=== PATIENT | female | born 1995 | race Caucasian/White ===

== ENCOUNTER → 2016-12-16 | Outpatient (CLI) | payer OTHER ==
[~2016-12-16] MED LIST: BCPILLS PO; EPP3/2 IM
== END | disposition home or self-care (01) ==
LOC: C.PAPS 09:51
PROVIDERS: ATTEND Obstetrics & Gynecology
DX: Z34.81 Encounter for supervision of other normal pregnancy, first trimester (principal)

== ENCOUNTER → 2016-12-16 | Outpatient (CLI) | payer OTHER ==
[2016-12-16 16:43] LABS: URINE APPEARANCE CLOUDY (CLEAR); URINE BILIRUBIN NEG (NEG); URINE COLOR YELLOW; URINE EPITHELIAL CELL AUTO >30 /lpf (0-5); URINE NITRITE NEG (NEG); URINE SPECIFIC GRAVITY 1.021 (1.000-1.030); UROBILINOGEN NEG (NEG)
[2016-12-16 16:46] LABS: MANUAL MICROSCOPIC REQUIRED? NO; REVIEW REQ? NO
[2016-12-19 00:57] LABS: CHLAMYDIA TRACH RNA*** NOT DETECTED (NOT DETECTED); GC (NEIS GONORRHOEAE)RNA** NOT DETECTED (NOT DETECTED)
== END | disposition home or self-care (01) ==
LOC: C.LABSPEC 16:12
PROVIDERS: ATTEND Obstetrics & Gynecology
DX: Z34.81 Encounter for supervision of other normal pregnancy, first trimester (principal)

== ENCOUNTER → 2016-12-16 | Outpatient (CLI) | payer OTHER ==
[2016-12-16 13:25] LABS: BASO % 0.7 %; BASO ABS # 0.07 K/uL (0-0.2); COMPLETE YES; EOS % 3.7 %; HEMATOCRIT 40.1 % (37-47); IG% 0.4 %; LYMPH % 24.4 %; LYMPH ABS # 2.34 K/uL (1.2-3.4); MEAN CORPUSCULAR HEMOGLOBIN 31.6 pg (25-34); MEAN CORPUSCULAR HGB CONC 33.9 g/dl (32-36); MEAN PLATELET VOLUME 11.2 fL (7.4-10.4); MONO % 9.1 %; NEUT % 61.7 %; PLATELET COUNT 286 K/uL (130-400); RED BLOOD COUNT 4.31 M/uL (4.2-5.4); WHITE BLOOD COUNT 9.58 K/uL (4.8-10.8)
== END | disposition home or self-care (01) ==
LOC: C.LAB1850 12:22
PROVIDERS: ATTEND Obstetrics & Gynecology
DX: Z34.81 Encounter for supervision of other normal pregnancy, first trimester (principal)

== ENCOUNTER 2017-08-05 01:04 | Inpatient (IN) | payer OTHER ==
[~2017-08-05] VITALS: Ht 167.6 cm; Wt 94.6 kg
[2017-08-05] MEDS ORDERED: LACTATED RINGER'S 1000ML 1,000 ML IV SCH (02:00)
[2017-08-05] MEDS ORDERED: NURSING VERBAL MED ORDER ONE (02:00)
[2017-08-05] MEDS ORDERED: CALCIUM CARBONATE 500 MG CHEWABLE PO PRN (02:30)
[2017-08-05] MEDS ORDERED: LACTATED RINGER'S 1000ML 500 ML IV PRN ×2 (02:36→03:20)
[2017-08-05] MEDS ORDERED: OXYTOCIN 30 UNITS/500ML NSS IV PRN ×2 (02:45→11:45)
[2017-08-05] MEDS ORDERED: EpHEDrine SULFATE INJ 50 MG/ML AMP ONE (02:46)
[2017-08-05] MEDS ORDERED: BUPIVACAINE 0.25% 30 ML VIAL ONE (02:46)
[2017-08-05] MEDS ORDERED: FENTANYL CITRATE INJ 50 MCG/1 ML 2 ML VIAL ONE ×2 (02:47→09:56)
[2017-08-05] MEDS ORDERED: FENTANYL 2MCG/ML ROPIV 1.25MG/ML 100ML BAG EPI ONE (02:53)
[2017-08-05 03:07] LABS: HEMATOCRIT 32.8 % (37-47); MEAN CELL VOLUME 86.3 fL (80-100); MEAN CORPUSCULAR HEMOGLOBIN 28.9 pg (25-34); MEAN CORPUSCULAR HGB CONC 33.5 g/dl (32-36); MEAN PLATELET VOLUME 10.9 fL (7.4-10.4); PLATELET COUNT 287 K/uL (130-400); RED CELL DISTRIBUTION WIDTH CV 14.3 % (11.5-14.5); RED CELL DISTRIBUTION WIDTH SD 45.1 fL (36.4-46.3); WHITE BLOOD COUNT 15.84 K/uL (4.8-10.8)
[2017-08-05] MEDS ORDERED: NALOXONE HCL INJ 1 MG in SODIUM CHLORIDE 0.9% 1000ML 1,000 ML IV PRN (03:20)
[2017-08-05 03:22] VITALS: Ht 167.6 cm; Wt 94.6 kg
[2017-08-05] MEDS ORDERED: RANI150T3 PO (03:26)
[2017-08-05] MEDS ORDERED: EpHEDrine SULFATE INJ 50 MG/ML AMP IV PRN (03:30)
[2017-08-05] MEDS ORDERED: DiphenhydrAMINE HCL 50 MG/ML VIAL IV PRN (03:30)
[2017-08-05] MEDS ORDERED: OXYTOCIN 30 UNITS/500ML NSS IV ONE (03:30)
[2017-08-05] MEDS ORDERED: NALOXONE HCL INJ 0.4 MG/1 ML VIAL/CARP IV PRN (03:30)
[2017-08-05] MEDS ORDERED: NALBUPHINE HCL INJ 10 MG/ML 1ML AMP IV PRN (03:30)
[2017-08-05] MEDS ORDERED: CALCIUM CARBONATE 500 MG CHEWABLE ONE (03:30)
[2017-08-05] MEDS: LACTATED RINGER'S 1000ML 1,000 ML IV SCH ×2 (05:45→10:35)
[2017-08-05] MEDS: FENTANYL 2MCG/ML ROPIV 1.25MG/ML 100ML BAG EPI PRN ×2 (07:02→10:23)
[2017-08-05] MEDS ORDERED: DIPHTHERIA/TETANUS/PERTUSSIS 0.5 ML SYR/VIAL IM. ONE (11:45)
[2017-08-05] MEDS ORDERED: LANOLIN OINT EXT PRN (11:45)
[2017-08-05] MEDS ORDERED: ACETAMINOPHEN 325 MG TAB PO PRN (11:45)
[2017-08-05] MEDS ORDERED: BENZOCAINE 20% AER SPR 82.5 GM CAN EXT PRN (11:45)
[2017-08-05] MEDS ORDERED: HYDROCORTISONE ACETATE 25 MG SUPP PR PRN (11:45)
[2017-08-05] MEDS ORDERED: OXYCODONE/ACETAMINOPHEN 5-325 TAB PO PRN (11:45)
[2017-08-05] MEDS ORDERED: SUPERCREAM 0.870 % 15GM JAR EXT PRN (11:45)
--- NOTE | 2017-08-05 12:49 | DELIVERY SUMMARY ---
DATE OF OPERATION: 08/05/2017 TIME OF DELIVERY: 11:36 a.m. DELIVERY OF PLACENTA: 11:38 a.m. DELIVERY NOTE: The patient is a 21-year-old 2 para 1 at 41 weeks' gestation, who was admitted to labor and delivery on the morning of 08/05/2017 with spontaneous rupture of membranes that occurred at 2325 on 2017 with a large amount of clear amniotic fluid noted. She received an epidural for anesthesia. She reached complete dilation at 11:23 a.m. with the urge to push. The patient pushed to delivery at 11:36 a.m. She delivered a viable female infant in the right occiput anterior position to an intact perineum. The baby was delivered. Cord clamped x2 and cut. The baby was immediately handed to awaiting nurse for further evaluation and management. Cord blood was then obtained and an intact placenta with a 3-vessel cord was delivered at 11:38. Oxytocin infusion was then begun. The lower uterine segment and vagina were cleared of any blood clot and debris. Exploration of the perineum noted no lacerations. ESTIMATED BLOOD LOSS: 300 mL. All sponge and instrument counts were found to be correct x2. Both the patient and baby tolerated the delivery well and were in Recovery with stable vital signs. I attest to the content of the Intraoperative Record and any orders documented therein. Any exceptions are noted below. MTDD
--- NOTE | 2017-08-05 13:09 | Anesthesia Procedure Note ---
Anesthesia Epidural Removal Nt Date & Time Aug 05, 2017 at 13:09 Vital Signs Pain Intensity: 4.0 Notes Mental Status: alert / awake / arousable, participated in evaluation Nausea / Vomiting: adequately controlled Pain: adequately controlled Airway Patency, RR, SpO2: stable & adequate BP & HR: stable & adequate Hydration State: stable & adequate Neuraxial Anesthesia: was administered Anesthetic Complications: no major complications apparent, pt satisfied with anesthetic care Epidural: removed without complications, with tip intact
[2017-08-05 15:12] VITALS: BP 136/83; PULSE 84; TEMP 37.3; O2SAT 98
[2017-08-05] MEDS: IBUPROFEN 600 MG TAB PO PRN ×2 (15:46→23:37)
[2017-08-05] MEDS: DOCUSATE SODIUM 100 MG CAP PO SCH (19:43)
[2017-08-05 19:45] VITALS: BP 117/79; PULSE 82; TEMP 36.6; O2SAT 98
[2017-08-05 23:40] VITALS: BP 126/80; PULSE 72; TEMP 36.4; O2SAT 98
[2017-08-06 03:50] VITALS: BP 111/74; PULSE 81; TEMP 36.4; O2SAT 98
[2017-08-06 07:12] LABS: HEMATOCRIT 29.9 % (37-47); HEMOGLOBIN 9.7 g/dL (12.0-16.0)
[2017-08-06 07:38] VITALS: BP 116/83; PULSE 73; TEMP 36.5; O2SAT 97; O2SAT 98
[2017-08-06] MEDS: DOCUSATE SODIUM 100 MG CAP PO SCH ×2 (08:05→19:44)
[2017-08-06] MEDS: IBUPROFEN 600 MG TAB PO PRN ×3 (08:05→19:45)
[2017-08-06] MEDS: PRENATAL VITAMIN TAB PO SCH (08:06)
[2017-08-06] MEDS: FERROUS SULFATE 325 MG TAB PO SCH (08:06)
--- NOTE | 2017-08-06 08:11 | OB/GYN Progress Note ---
MOISTURE TESTER Progress Note Date of Service: Aug 06, 2017. Patient is seen and examined. She feels well, no complaints. Ambulating without dizziness Voiding without difficulty Tolerating regular diet with out N&V Bleeding is minimal No fever/ chills/ CP/ SOB/ N&V/ Leg pain Breast feeding without problems Date Time Temp Pulse Resp B/P (MAP) Pulse Ox O2 Delivery O2 Flow Rate FiO2 08/06/17 03:50 36.4 81 18 111/74 (86) 98 Room Air 08/05/17 23:40 98 Room Air 08/05/17 23:40 36.4 72 18 126/80 (95) 98 Room Air 08/05/17 19:45 36.6 82 18 117/79 (92) 98 Room Air 08/05/17 15:20 Room Air 08/05/17 15:12 37.3 84 20 136/83 (100) 98 Room Air Last 24 Hours Test 08/06/17 06:32 Hemoglobin 9.7 g/dL Hematocrit 29.9 % PE: General: Alert, orientedx3, NAD Abd: soft, NT, fundus firm, below Umbilicus Perineum intact, Lochia rubra minimal Ext; NT, no edema AP: 21 yo s/p , ppd# 1 VSS Afebrile doing well Continue routine care All questions were answered D/C home tomorrow
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
[2017-08-06 13:30] VITALS: BP 128/89; PULSE 65; TEMP 36.7; O2SAT 96
--- NOTE | 2017-08-06 14:00 | NUR ---
Patient requesting IV site to be removed at this time. Explained to her that she is supposed to have another lab drawn tomorrow morning. She understands that if we would have a need for a new IV site we will have to restick her. She verbalized understanding and still requesting site to be taken out. IV catheter intact removed at this time.
[2017-08-06 15:15] VITALS: BP 139/88; PULSE 78; TEMP 36.8
--- NOTE | 2017-08-06 18:45 | NUR ---
Pt in room with infant and 2.5 year old daughter. Asked if there was someone else here at this time and pt stated she does not have anyone here at this time but someone will be here shortly. Educated pt about not having older daughter here alone. Pt stated she understands and someone will be here shortly to watch her. Pt also stated that "they" told her she can drive home tomorrow and she will need to put the car seat base. Encouraged pt to try her best to find a ride home and that driving home after being a pt is highly discouraged. Pt stated she does not have a ride but she will keep trying to find a ride.
[2017-08-06] MEDS ORDERED: BISACODYL 5 MG TABEC PO SCH (20:00)
[2017-08-07 00:20] VITALS: BP 138/81; PULSE 69; TEMP 36.7
[2017-08-07] MEDS: IBUPROFEN 600 MG TAB PO PRN ×2 (06:14→11:39)
[2017-08-07] MEDS ORDERED: BISACODYL 10 MG SUPP PR PRN (07:00)
[2017-08-07 07:27] LABS: HEMATOCRIT 32.4 % (37-47); HEMOGLOBIN 10.6 g/dL (12.0-16.0); MEAN CORPUSCULAR HEMOGLOBIN 28.8 pg (25-34); MEAN CORPUSCULAR HGB CONC 32.7 g/dl (32-36); MEAN PLATELET VOLUME 11.1 fL (7.4-10.4); PLATELET COUNT 294 K/uL (130-400); RED CELL DISTRIBUTION WIDTH CV 14.9 % (11.5-14.5); RED CELL DISTRIBUTION WIDTH SD 47.6 fL (36.4-46.3)
[2017-08-07] MEDS: PRENATAL VITAMIN TAB PO SCH (08:45)
[2017-08-07] MEDS: DOCUSATE SODIUM 100 MG CAP PO SCH (08:45)
[2017-08-07] MEDS: FERROUS SULFATE 325 MG TAB PO SCH (08:45)
[2017-08-07 08:50] VITALS: BP 128/84; PULSE 63; TEMP 36.6; O2SAT 97
--- NOTE | 2017-08-07 10:19 | OB/GYN Progress Note ---
ASSOCIATE PROGRAMMER Progress Note Date of Service Aug 07, 2017. Subjective conversation w/ patient, physical exam Ambulation: ambulating normally Voiding: no voiding problems Passing Gas: Yes Diet Tolerance: Regular Diet Lochia: Moderate Feeding Type: Breast Feeding Review of Systems Constitutional: No fever, No chills, No sweats, No weight loss, No weakness, No fatigue, No problem reported Respiratory: No cough, No sputum, No wheezing, No shortness of breath, No dyspnea on exertion, No dyspnea at rest, No hemoptysis, No problem reported Cardiac: No chest pain, No orthopnea, No PND, No edema, No claudication, No palpitations, No problem reported Breast: No see HPI, No breast lump, No change in shape, No nipple discharge, No breast pain, No problem reported Abdomen: No pain, No nausea, No vomiting, No diarrhea, No constipation, No GI bleeding, No problem reported Female : No see HPI, No dysuria, No urinary frequency, No hematuria, No incontinence, No abnormal vaginal bleeding, No vaginal discharge, No problem reported Objective Vital Signs Date Time Temp Pulse Resp B/P (MAP) Pulse Ox O2 Delivery O2 Flow Rate FiO2 08/07/17 00:20 36.7 69 18 138/81 (100) Room Air 08/07/17 00:20 Room Air 08/06/17 15:15 Room Air 08/06/17 15:15 36.8 78 18 139/88 (105) Room Air 08/06/17 13:30 36.7 65 18 128/89 (102) 96 Room Air Physical Exam General Appearance: WELL-APPEARING, WD/WN, NO APPARENT DISTRESS Respiratory/Chest: chest non-tender, lungs clear, normal breath sounds, no respiratory distress Cardiovascular: regular rate, rhythm, no edema, no gallop Abdomen: normal bowel sounds, non tender Fundus: Firm Extremities: normal range of motion, non-tender, normal inspection Laboratory Results Last 24 Hours Test 08/07/17 06:59 White Blood Count 11.70 K/uL Red Blood Count 3.68 M/uL Hemoglobin 10.6 g/dL Hematocrit 32.4 % Mean Corpuscular Volume 88.0 fL Mean Corpuscular Hemoglobin 28.8 pg Mean Corpuscular Hemoglobin Concent 32.7 g/dl RDW Standard Deviation 47.6 fL RDW Coefficient of Variation 14.9 % Platelet Count 294 K/uL Mean Platelet Volume 11.1 fL Assessment and Plan Day Number: 2 Continue Routine Care: VD Day #2 Pt doing well No complaints discharge home with instructions
[2017-08-07] MEDS ORDERED: FRRS300 PO (10:26)
[2017-08-07] MEDS ORDERED: CLC100 PO (10:26)
[2017-08-07] MEDS ORDERED: MTR600X PO (10:26)
--- NOTE | 2017-08-07 10:26 | Discharge Instructions ---
Discharge Instructions Date of Service Aug 07, 2017. Admission Reason for Admission: LABOR Discharge Discharge Diagnosis / Problem: Discharge Goals Goal(s): Routine recovery after delivery Activity Recommendations Activity Limitations: as noted below ACTIVITY RECOMMENDATIONS: * Gradual return to full activity over the next 2-3 weeks. * No lifting - nothing heavier than baby over the next 2-3 weeks. * Do not engage in vigorous exercise, sexual activity or sports until cleared by your physician. * Do not drive or operate any motorized equipment until cleared by your physician. * You may shower/bathe daily. BREAST CARE: If you are not breast feeding: * Wear a supportive bra 24 hours a day for one to two weeks. * Avoid stimulating your breasts and nipples as much as possible during the first few weeks after delivery. * When taking a shower, have the warm water hit your back, not breasts. * When your breasts feel full, apply ice packs. Usually three to four times a day helps ease the discomfort. * Take a mild pain medication (Tylenol/Motrin) when you are uncomfortable. If breast feeding: * Use breast milk to lubricate nipples. Lansinoh cream may be used for sore nipples. You do not need to remove cream prior to breast feeding. If using a different brand of cream, check the label for directions regarding removal of cream prior to nursing. * Wear a supportive bra. * If having problems with breasts or breast feeding, call a actuarial consultant or your health care provider. EPISIOTOMY CARE: After delivery, if you have an episiotomy (stitches), the following steps will ease discomfort and aid healing. * For the first 24 hours after delivery, place ice packs next to your episiotomy to help reduce swelling. * After the first 24 hour-period, sitz baths, either portable or in the tub, are suggested. A shower with a shower arm sprayed over the episiotomy may be comforting. * Magalis care should be done after each voiding and bowel movement. Squirt warm water from a plastic bottle over the perineum (region of the body between the anus and urinary opening) and pat dry. * Use Dermoplast to ease discomfort. Shake container. Golva directly over the episiotomy. * Place a Tucks on a clean sanitary pad next to your episiotomy. OVER THE COUNTER MEDICATION: * For discomfort or pain, you may use Acetaminophen (Tylenol), Ibuprofen (Advil ), or Naproxen (Aleve) following the package directions. * For constipation you may use Colace following the package directions. SPECIAL CARE INSTRUCTIONS: When you are discharged from the hospital, it is important for you to follow the instructions listed below: * During the first week at home, you should be able to care for yourself and your baby. In addition, the usual light household activities are encouraged. * Limit your activities to the way you feel. Do not try to clean the house or move furniture. Be sensible. * If you actively engage in sports and have done so up until the time of your delivery, you may resume these activities as soon as you feel able. This may take up to one month or even longer. Use good judgment. * Continue to take your vitamins for at least six weeks after the of your baby. * Your diet need not be limited unless you were on a special diet before your delivery. Breast-feeding mothers need around 2500 calories per day and at least 64-80 ounces of fluid per day (8 to 10 glasses). * You should eat foods from the four major food groups. Crash diets or fad diets are to be avoided. Eating lean meats, fresh fruits and vegetables, low-fat dairy products, high fiber foods and a regular exercise program, will help you get back to your pre- weight without putting your health at risk. * Constipation is sometimes a problem after delivery. Take a mild laxative as needed. If breast feeding, Milk of Magnesia is acceptable to use. You may use a suppository or Fleets enema if no episiotomy. * A daily shower or tub bath is suggested. Be sure to thoroughly and gently dry the perineum. * A bloody vaginal discharge will usually continue until around four weeks post . A small amount of bleeding may continue for as long as six weeks. Vaginal discharge changes from the bright red bleeding after delivery to pink then brownish and finally yellowish-pink before becoming white and disappearing. * Bleeding may increase with activity. Your first period may come in 4-8 weeks. If you are breast feeding, your period may be delayed even longer. * Mather (sex) can begin whenever both you and your partner feel comfortable and do not have any form of genital infection. It is recommended that you wait until after your return appointment and discuss with your physician. If you have questions, please talk to your health care practitioner. A condom should be used to prevent infection and . * Foreplay, gentle intercourse and lubrication is very important the first several times to prevent pain. A water-based lubricant such as K-Y jelly or Astroglide may be used. * Tampons may be used six weeks after delivery. * Douching should be avoided for 6 weeks after delivery. * If you have RH negative blood and your baby is RH positive, you will receive RHOGAM by injection prior to discharge. The nurse will give you a card to keep with you that has the date and place that you received RHOGAM after delivery. * During your care, you had a Rubella screen done to check for the presence of rubella antibodies in your blood. If your test was negative, you will receive a Rubella vaccine prior to discharge. This vaccine may cause a fever, soreness at the injection site and flu-like symptoms. If these symptoms persist, notify your health care practitioner. is not advised for three months after a Rubella vaccine. There is a higher chance of having a baby with defects if conceived within three months of getting the vaccine. * If you were discharged 24 hours from delivery or before 48 hours: Visiting nurses will come to your home 48 hours after discharge to assess you and your baby. The visiting nurse will meet with you while you are in the hospital to arrange a time and get directions to your home. * Verbalizes understanding of car seat law as reviewed with patient nursing. * Car Seat hand-out given and reviewed with patient by nursing. * Shaken baby information reviewed with patient by nursing. Call you doctor if: * Heavy bleeding (saturating several pads an hour) or passing clots the size of your fist. * A fever >101 degrees F (38.3 degrees C) on two occasions four hours apart and/or chills. * Unusual pain in the pelvic or vaginal areas. * "Baby Blues" lasting longer than two weeks. If you have any questions or concerns, call your health care practitioner at . FOLLOW-UP VISIT: * Please call the office at to schedule a 6 week examination. It is important you keep this appointment. * It is important for you to make arrangements for either yearly or twice yearly check-ups thereafter. . Current Hospital Diet Patient's current hospital diet: Regular OB Diet Discharge Diet Recommended Diet: Regular Diet Pending Studies Studies pending at discharge: no Medical Emergencies . Who to Call and When: Medical Emergencies: If at any time you feel your situation is an emergency, please call 911 immediately. . Non-Emergent Contact Non-Emergency issues call your: Specialist . . "Provider Documentation" section prepared by Gui Delcid. . VTE Core Measure Inpt VTE Proph given/why not?: Treatment not indicated
[2017-08-07 11:30] VITALS: BP_DIAS 84; PULSE 63; TEMP 36.6
--- NOTE | 2017-08-07 11:45 | NUR ---
Patient given discharge instructions for herself and at this time. Patient verbalized understanding and denies any questions. Patient given prescription for Motrin to help with pain control upon discharge. Patient to go home with and family at this time. ID bands checked with mother and and placed in car seat by mother.
--- NOTE | 2017-08-07 12:00 | NUR ---
Pt refused Adacel vaccination at this time. Patient states that she already received this vaccination during .
--- NOTE | 2017-08-07 12:00 | NUR ---
Patient discharged to home at this time with . Patient escorted to the front of the hospital via wheelchair by the volunteer.
== END 2017-08-07 12:00 | disposition home or self-care (01) | DRG 775 ==
LOC: C.OPB 01:04 → C.LD 01:07 → C.OPB 01:53 → C.OBG 14:35
PROVIDERS: ADMIT Obstetrics & Gynecology; ATTEND Obstetrics & Gynecology
PROC: 10E0XZZ Delivery of Products of Conception, External Approach (ICD-10-PCS; principal; 2017-08-05)
DX: O99.334 Smoking (tobacco) complicating childbirth (principal); F17.200 Nicotine dependence, unspecified, uncomplicated; Z3A.41 41 weeks gestation of pregnancy; Z37.0 Single live birth